=== PATIENT | female | born 1960 | race African-American/Black ===

== ENCOUNTER → 2023-10-06 | Outpatient (CLI) | payer BC ==
[2023-10-06 08:51] LABS: BASOPHILS % 1.1 % (0.0-2.0); HEMATOCRIT. 40.2 % (36.0-48.0); HEMOGLOBIN. 13.3 g/dL (12.0-16.0); LYMPHOCYTES % 37.8 % (20.0-50.0); MEAN CORPUSCULAR HEMOGLOBIN 29.7 pg (28.0-32.0); MEAN CORPUSCULAR VOLUME 90.1 fL (81.0-99.0); MEAN PLATELET VOLUME 8.4 fl (7.4-10.4); MONOCYTES % 10.2 % (2.0-8.0); NEUTROPHILS % 48.9 % (40.0-76.0); PLATELET 220 x1000/uL (130-400); RED BLOOD CELL COUNT 4.46 mill/uL (4.2-5.4); RED CELL DISTRIBUTION WIDTH 13.3 % (11.6-14.6); WHITE BLOOD COUNT 3.2 x1000/uL (4.5-11.0)
[2023-10-06 08:52] LABS: CHLORIDE 105 mEq/L (98-107); POTASSIUM 3.5 mEq/L (3.5-5.1); SODIUM 139 mEq/L (136-145)
[2023-10-06 08:53] LABS: CALCIUM 9.3 mg/dL (8.7-10.4); CARBON DIOXIDE 28 mEq/L (21-32)
[2023-10-06 08:55] LABS: FERRITIN 51 ng/mL (10-291); THYROID STIMULATING HORMONE 1.52 uIU/mL (0.55-4.78); VITAMIN B12 SERUM 753 pg/mL (211-911)
[2023-10-06 08:57] LABS: IRON 65 ug/dL (50-170)
[2023-10-06 08:58] LABS: CREATININE 0.6 mg/dL (0.6-1.0); GLUCOSE 90 mg/dL (70-105); TRIGLYCERIDE 53 mg/dL (0-150); UREA NITROGEN BLOOD 10 mg/dL (9-23)
[2023-10-06 08:59] LABS: ALANINE AMINOTRANSFERASE 20 IU/L (10-49); ASPARTATE AMINOTRANSFERASE 21 IU/L (<34); LDL CHOLESTEROL 142 mg/dL (5-100)
[2023-10-06 09:00] LABS: ALBUMIN 4.2 g/dL (3.2-4.8); BILIRUBIN TOTAL 0.8 mg/dL (0.1-1.0); CHOLESTEROL 189 mg/dL (<200); HDL CHOLESTEROL 62 mg/dL (>65); PROTEIN TOTAL 7.9 g/dL (6.0-8.3); TOTAL IRON BINDING CAPACITY 241 ug/dl (250-425)
[2023-10-06 12:39] LABS: CLARITY URINE CLEAR (CLEAR); COLOR URINE YELLOW (YELLOW); GLUCOSE URINE NEGATIVE (NEGATIVE); KETONES URINE NEGATIVE (NEGATIVE); LEUKOCYTE ESTERASE URINE 1+ (NEGATIVE); NITRITE URINE NEGATIVE (NEGATIVE); OCCULT BLOOD URINE TRACE (NEGATIVE); PH URINE 5.5 (4.5-8.0); PROTEIN URINE NEGATIVE (NEGATIVE); SPECIFIC GRAVITY URINE 1.024 (1.005-1.030)
[2023-10-06 12:49] LABS: SQUAMOUS EPITHELIAL CELL URINE 3+ /lpf (RARE/1+)
[2023-10-06 12:50] LABS: MUCUS URINE TRACE /lpf (< = 2+); RBC URINE 0-2 /hpf (0-2)
[2023-10-06 12:51] LABS: BACTERIA URINE 1+
== END | disposition home or self-care (01) ==
LOC: LAB 08:03
PROVIDERS: ATTEND Internal Medicine Geriatric Medicine
DX: Z00.01 Encounter for general adult medical examination with abnormal findings (principal); N39.0 Urinary tract infection, site not specified
CPT/HCPCS: 36415; 80053; 80061; 81003; 82306; 82607; 82728; 83036; 83540; 83550; 84443; 85025; 86592

== ENCOUNTER 2024-07-26 03:40 | Emergency (ER) | payer BC ==
[~2024-07-26] VITALS: Ht 175.3 cm; Wt 85.0 kg
[2024-07-26 03:46] VITALS: BP 191/106; PULSE 80; RESP 18; TEMP 36.7; O2SAT 98
[2024-07-26] MEDS: CLONIDINE 0.1MG TABLET PO ONE (04:34)
== END 2024-07-26 06:14 | disposition home or self-care (01) ==
LOC: ER 03:40
DX: M76.41 Tibial collateral bursitis [Pellegrini-Stieda], right leg (principal); I10 Essential (primary) hypertension; Z90.49 Acquired absence of other specified parts of digestive tract
CPT/HCPCS: 73562; 76881; 93971; 99284

== ENCOUNTER → 2024-09-19 | Outpatient (CLI) | payer BC ==
[2024-09-19 08:53] LABS: BASOPHILS % 1.3 % (0.0-2.0); HEMATOCRIT. 41.7 % (36.0-48.0); HEMOGLOBIN. 13.3 g/dL (12.0-16.0); LYMPHOCYTES % 36.4 % (20.0-50.0); MEAN CORPUSCULAR HEMOGLOBIN 28.5 pg (28.0-32.0); MEAN CORPUSCULAR HGB CONC 31.8 g/dL (31.0-37.0); MEAN CORPUSCULAR VOLUME 89.5 fL (81.0-99.0); MEAN PLATELET VOLUME 7.9 fl (7.4-10.4); MONOCYTES % 9.3 % (2.0-8.0); PLATELET 206 x1000/uL (130-400); RED BLOOD CELL COUNT 4.66 mill/uL (4.2-5.4); RED CELL DISTRIBUTION WIDTH 13.3 % (11.6-14.6); WHITE BLOOD COUNT 3.4 x1000/uL (4.5-11.0)
[2024-09-19 08:57] LABS: CHLORIDE 104 mEq/L (98-107); POTASSIUM 3.8 mEq/L (3.5-5.1); SODIUM 142 mEq/L (136-145)
[2024-09-19 08:58] LABS: CALCIUM 9.8 mg/dL (8.7-10.4); CARBON DIOXIDE 31 mEq/L (21-32)
[2024-09-19 09:03] LABS: CREATININE 0.6 mg/dL (0.6-1.0); GLUCOSE 103 mg/dL (70-105); TRIGLYCERIDE 66 mg/dL (0-150); UREA NITROGEN BLOOD 14 mg/dL (9-23)
[2024-09-19 09:04] LABS: LDL CHOLESTEROL 118 mg/dL (5-100)
[2024-09-19 09:05] LABS: ALANINE AMINOTRANSFERASE 13 IU/L (10-49); ALBUMIN 4.1 g/dL (3.2-4.8); ASPARTATE AMINOTRANSFERASE 15 IU/L (<34); BILIRUBIN TOTAL 0.5 mg/dL (0.1-1.0); CHOLESTEROL 180 mg/dL (<200); HDL CHOLESTEROL 53 mg/dL (>65)
[2024-09-19 09:06] LABS: PROTEIN TOTAL 7.8 g/dL (6.0-8.3)
[2024-09-19 09:08] LABS: T4 FREE 1.32 ng/dL (0.89-1.76); THYROID STIMULATING HORMONE 1.58 uIU/mL (0.55-4.78)
[2024-09-19 09:15] LABS: CLARITY URINE CLOUDY (CLEAR); COLOR URINE DARK YELLOW (YELLOW); GLUCOSE URINE NEGATIVE (NEGATIVE); KETONES URINE TRACE (NEGATIVE); LEUKOCYTE ESTERASE URINE TRACE (NEGATIVE); NITRITE URINE NEGATIVE (NEGATIVE); OCCULT BLOOD URINE NEGATIVE (NEGATIVE); PH URINE 5.5 (4.5-8.0); PROTEIN URINE TRACE (NEGATIVE); SPECIFIC GRAVITY URINE 1.031 (1.005-1.030)
[2024-09-19 09:24] LABS: VITAMIN B12 SERUM 215 pg/mL (211-911)
[2024-09-19 09:29] LABS: BACTERIA URINE 2+; RBC URINE 0-2 /hpf (0-2); SQUAMOUS EPITHELIAL CELL URINE 1+ /lpf (RARE/1+); YEAST URINE NONE SEEN
[2024-09-19 09:35] LABS: HEPATITIS B SURFACE ANTIGEN NEGATIVE (Negative)
[2024-09-19 09:56] LABS: HEPATITIS A AB IGM NEGATIVE (Negative)
[2024-09-19 09:57] LABS: HEPATITIS B CORE AB IGM NEGATIVE (Negative); HEPATITIS C AB NON REACTIVE (Neg) (Negative)
== END | disposition home or self-care (01) ==
LOC: LAB 08:18
PROVIDERS: ATTEND Internal Medicine Geriatric Medicine
DX: I10 Essential (primary) hypertension (principal); Z00.01 Encounter for general adult medical examination with abnormal findings
CPT/HCPCS: 36415; 80053; 80061; 80074; 81001; 81003; 82306; 82607; 83036; 83735; 84439; 84443; 85025; 86592; 86705; 86709; 87340

== ENCOUNTER → 2024-09-22 | Outpatient (CLI) | payer BC | END | disposition home or self-care (01) | LOC: MRI 14:33 | PROVIDERS: ATTEND Internal Medicine Geriatric Medicine | DX: S83.011A Lateral subluxation of right patella, initial encounter (principal); S83.241A Other tear of medial meniscus, current injury, right knee, initial encounter; M17.11 Unilateral primary osteoarthritis, right knee; M71.21 Synovial cyst of popliteal space [Baker], right knee; M22.41 Chondromalacia patellae, right knee; M25.461 Effusion, right knee; M25.861 Other specified joint disorders, right knee; M67.863 Other specified disorders of tendon, right knee; M67.51 Plica syndrome, right knee; N73.9 Female pelvic inflammatory disease, unspecified; M25.561 Pain in right knee; X58.XXXA Exposure to other specified factors, initial encounter; Y93.89 Activity, other specified; Y92.89 Other specified places as the place of occurrence of the external cause; Y99.8 Other external cause status | CPT/HCPCS: 73721 ==

== ENCOUNTER 2025-04-11 20:38 | Emergency (ER) | payer BC ==
[~2025-04-11] VITALS: Ht 175.3 cm; Wt 82.0 kg
[2025-04-11] MEDS: KETOROLAC 15MG/ML VIAL IM ONE (10:00)
[2025-04-11 20:40] VITALS: O2SAT 98
[2025-04-11 20:48] VITALS: BP 203/97; PULSE 81; RESP 16; TEMP 36.9; O2SAT 100
[2025-04-11] MEDS ORDERED: NAPR-1176 MT (22:38)
[2025-04-11] MEDS ORDERED: LIDO-53 TP (22:38)
== END 2025-04-11 22:58 | disposition home or self-care (01) ==
LOC: ER 20:38
DX: R60.0 Localized edema (principal); M79.641 Pain in right hand; Z79.1 Long term (current) use of non-steroidal anti-inflammatories (NSAID); Z90.49 Acquired absence of other specified parts of digestive tract
CPT/HCPCS: 99284; 73100; 73120; 96372; J1885